=== PATIENT | male | born 1980 | race Caucasian/White ===

== ENCOUNTER → 2020-07-21 11:17 | Outpatient (BNVA) | payer OTHER, SELFPAY | PROVIDERS: Visit Provider Nurse Practitioner Family | DX: R53.83 Other fatigue (principal); E78.5 Hyperlipidemia, unspecified | CPT/HCPCS: 80053; 80061; 84443; 85007; 85027 ==

== ENCOUNTER 2020-08-17 12:00 | Outpatient (CLI) | payer OTHER, SELFPAY | END 2020-08-17 12:01 | disposition home or self-care (01) | LOC: SLEEP 08-19 08:56 | PROVIDERS: Visit Provider Nurse Practitioner Family | DX: G47.19 Other hypersomnia (principal) | CPT/HCPCS: G0399 ==

== ENCOUNTER 2021-03-09 08:54 | Emergency (ER) | payer OTHER, SELFPAY ==
[2021-03-09 09:13] VITALS: BP 135/94; PULSE 88; RESP 16; TEMP 36.7; O2SAT 96; BMI 36.4
[2021-03-09 09:28] VITALS: BP 142/97; PULSE 87; O2SAT 97
--- NOTE | 2021-03-09 09:28 | US_ITS ---
WS: [id number] SCROTAL ULTRASOUND EXAMINATION CLINICAL INFORMATION: abscess COMPARISON: None. FINDINGS: TESTES Hypoechoic lesion in the inferior scrotum with sinus tract extending to the skin. Findings suspicious for small abscess measuring 0.9 x 0.6 x 0.3 cm. Associated Scrotal thickening. Testicles are normal in size and echotexture with normal vascularity. Right testes size: 4.7 cm x 2.7 cm x 2.5 cm. Left testes size: 5.1 cm x 3.1 cm x 2.9 cm. EPIDIDYMIDES Normal in size and echotexture, without focal lesion. Color Doppler: Normal color Doppler flow pattern. Right epididymis size: 1.3 cm x cm x cm. Left epididymitis size: 0.8 cm x cm x cm. HYDROCELE None. VARICOCELE None. OTHER FINDINGS None. US/US scrotum [id number] IMPRESSION: 1. Suspected abscess in the inferior scrotum described above with associated s inus tract. Hypoechoic region measures 0.9 x 0.3 x 0.6 cm 2. Scrotal skin thickening. 3. Testicles are normal in appearance.
--- NOTE | 2021-03-09 09:29 | ED_ITS ---
HPI - Skin/Abscess/Foreign Bdy General: Chief complaint: Skin/Abscess/Foreign Body Stated complaint: possible abscess in groin Time Seen by Provider: 03/09/21 09:01 Source: patient Mode of arrival: ambulatory Limitations: no limitations History of Present Illness: HPI narrative: Patient is a nice 40-year-old male who presents to ED today along with his for a complaint of a knot underneath the scrotum. Patient states approximately 10 days ago he noted what he thought to be was most likely an ingrown hair to the area but states since that time pain has progressively worsened and he feels like area has enlarged. He has not noted any redness or heat to the area. He has not been running fevers. MD complaint: abscess/boil and lesion Onset (ago): day(s) Tetanus up to date: yes Location: genitals Severity: moderate Pain Consistency: constant Relieving factors: none Exacerbating factors: none Context: none Associated symptoms: Reports no associated symptoms; Deny chills, fever(s), nausea or vomiting Treatments prior to arrival: none Review of Systems Const: Denies: fever(s), chills, body aches, fatigue or malaise Card: Denies: chest pain Resp: Denies: dyspnea GI: Denies: abdominal pain, nausea, vomiting or diarrhea : Reports: genital lesions (reports possible abscess); Denies: flank pain, dysuria, hematuria, penile discharge, testicular pain or scrotal swelling Skin/Breast: Denies: rash PFS ED PFSH: Medical History Hx of renal calculi Social History Smoking and tobacco status: current every day smoker smokeless tobacco Physical Exam Const: COMMON NORMALS: no acute distress, patient oriented x3, no limitations, healthy appearing, alert and well nourished GENERAL APPEARANCE: cooperative NUTRITIONAL APPEARANCE: obese ORIENTATION/CONSCIOUSNESS: Yes awake, Yes oriented to person, Yes oriented to place and Yes oriented to time Resp: COMMON NORMALS: normal respiratory effort and clear to auscultation bilaterally AUSCULTATION: clear to auscultation bilaterally Cardio: COMMON NORMALS: regular rate and regular rhythm RATE: regular rate RHYTHM: regular rhythm : PENIS: normal penis SCROTUM: Yes testes descended bilaterally, No erythematous, No edematous and No scrotal swelling TESTES: Yes testicular lie normal, No testicular swelling and No testicular tenderness OTHER: patient has a 1.0cm abscess to posterior scrotal wall with two small (1-2mm) pustules with purulent material; no active drainage; there does not appear to be any surrounding cellulitis or edema; testicle palpation is normal; my suspicion is that this will be localized to superficial tissues but will obtain US evaluation to rule out any deeper fluid collection Neuro: COMMON NORMALS: patient oriented x3 SENSORIUM/ORIENTATION: Yes alert, Yes oriented to person, Yes oriented to place and Yes oriented to time Skin: NARRATIVE SKIN EXAM: see assessment for pertinent skin findings Course Vital Signs: Vital signs: Vital Signs Temperature 98.1 F 03/09/21 09:13 Pulse Rate 87 03/09/21 09:28 Respiratory Rate 16 03/09/21 09:13 Blood Pressure 142/97 03/09/21 09:28 Pulse Oximetry 97 03/09/21 09:28 MDM - Skin/Abscess/Foreign Bdy MDM Narrative: Medical decision making narrative: At this point abscess is superficial and less than 1 cm and does not appear easily drainable by US. Patient has no surrounding erythema/warmth or edema. No intrascrotal organ involvement. Patient will be instructed for sitz baths and will place on oral abx. Return to ED precautions for worsening symptoms-otherwise recommend PCP follow up early next week. No need for urology referral at this time. Imaging Data^: US testicular/scrotum: My impression: Per Nehemias Rossi, tech-small 0.9mm inferior scrotal wall abscess that did not appear drainable; otherwise normal Discharge Plan Discharge Patient Disposition: Home Clinical Impression: Scrotal wall abscess Condition: Stable Prescriptions: New Bactrim DS 800-160 mg tablet 1 tab PO BID 7 Days Qty: 14 RF: 0 No Action Tylenol Extra Strength 500 mg Tablet 1,000 mg PO Q4H PRN (Reason: Pain) RF: 0 Discharge Orders: Discharge ED (Routine); Ordered 03/09/21 Ordered By: Tete Colin Patient Instructions: Abscess (ED) Activity Restrictions/Additional Instructions: As we discussed begin taking antibiotics immediately. You may do sitz baths 2- 3x daily to area. Please monitor area closely for worsening swelling, redness/warmth, or increased pain. You need to return to the emergency department over the weekend if these occur. Otherwise please follow-up with primary care early next week for reevaluation. Stand Alone Forms: Work/School Release Coding Level of Care Code ED Template Reproduction Technician for Emma Ortega Exam Expanded Problem Focused
== END 2021-03-09 10:17 | disposition home or self-care (01) ==
PROVIDERS: Emergency Provider Physician Assistant
DX: N49.2 Inflammatory disorders of scrotum (principal); F17.210 Nicotine dependence, cigarettes, uncomplicated
CPT/HCPCS: 76870; 99281

== ENCOUNTER 2022-10-30 03:48 | Emergency (ER) | payer OTHER, SELFPAY ==
[2022-10-30 03:57] VITALS: BP 152/116; PULSE 78; RESP 18; RESP 22; TEMP 36; TEMP 36.6; O2SAT 98; BMI 38.2
--- NOTE | 2022-10-30 03:57 | CTR_ITS ---
PROCEDURE INFORMATION: Exam: CT Abdomen And Pelvis Without Contrast Exam date and time: 10/30/2022 4:25 AM Age: 42 years old Clinical indication: Abdominal pain; Flank; Right; Additional info: Right flank pain TECHNIQUE: Imaging protocol: Computed tomography of the abdomen and pelvis without contrast. Radiation optimization: All CT scans at this facility use at least one of these dose optimization techniques: automated exposure control; mA and/or kV adjustment per patient size (includes targeted exams where dose is matched to clinical indication); or iterative reconstruction. REPORTING DATA: Count of CT and Cardiac NM exams in prior 12 months: This patient has received 0 known CTs and 0 known cardiac nuclear medicine studies in the 12 months prior to the current study. COMPARISON: CT kidney stone [id number] 09/05/2018 5:45 PM RADIATION DOSE METRICS: Total DLP (mGy-cm): 930.23 FINDINGS: Liver: No acute abnormality on noncontrast imaging. Gallbladder and bile ducts: No acute abnormality. No calcified stones. No ductal dilation. Pancreas: No acute abnormality. No ductal dilation. Spleen: No acute abnormality. Adrenal glands: No significant or acute abnormality. Kidneys and ureters: Tiny punctate nonobstructing bilateral renal calculi. No hydronephrosis, hydroureter or definite distal urinary calculus. Stomach and bowel: Ingested contents within stomach. No significant large or small bowel distention. No evidence of diverticulitis. Appendix: Grossly normal nondilated visualized appendix. Intraperitoneal space: No significant fluid collection. No free air. Vasculature: No acute abnormality. No abdominal aortic aneurysm. Lymph nodes: No enlarged lymph nodes. Urinary bladder: Nondistended decompressed urinary bladder. No bladder calculi. Reproductive: Unremarkable as visualized. Bones/joints: No acute osseous abnormality. No dislocation. Soft tissues: Small fat containing umbilical hernia. CT/CT kidney stone [id number] IMPRESSION: 1. Tiny punctate nonobstructing bilateral renal calculi. 2. No evidence of distal urinary calculus or obstructive uropathy at this time.
--- NOTE | 2022-10-30 03:58 | W.ED.BACK ---
Documented by User: Ramila Simeon MD 10/30/22 04:01 HPI - Back Pain/Injury General: Chief Complaint: Back Pain/Injury Stated Complaint: Lower Back Pain Time Seen by Provider: 10/30/22 03:49 Source: patient Mode of arrival: ambulatory Limitations: no limitations History of Present Illness: 42-year-old male states that 9:00 he started having right flank pain and right lower back pain. He states that started suddenly is very sharp in nature. States it does seem to be worse with movement and he does have some tenderness to palpation but he also has a history of kidney stones and states this feels similar. He denies any vomiting or diarrhea denies any fevers. Associated symptoms: Reports abdominal pain and nausea; Deny chills, dysuria, fever(s) or vomiting Review of Systems Const: Denies: fever(s), chills or body aches Eyes: Denies: eye discomfort ENMT: Denies: throat pain or dental pain Card: Denies: chest pain Resp: Denies: dyspnea GI: Reports: abdominal pain and nausea; Denies: vomiting or diarrhea : Denies: dysuria Musc: Reports: back pain; Denies: neck pain Skin/Breast: Denies: rash PFSH ED PFSH: Medical History Hx of renal calculi Social History Smoking and tobacco status: current every day smoker smokeless tobacco Physical Exam Const: COMMON NORMALS: no acute distress, patient oriented x3 and healthy appearing HENMT: COMMON NORMALS: normocephalic and atraumatic HEAD & SCALP: normocephalic and atraumatic Eye: COMMON NORMALS: conjunctivae normal CONJUNCTIVA: Yes conjunctivae normal Neck/C-Spine: COMMON NORMALS: full ROM and supple Chest: COMMONS NORMALS: normal inspection of the chest and normal palpation of entire chest wall Resp: COMMON NORMALS: normal respiratory effort, No retractions, No use of accessory muscles and clear to auscultation bilaterally AUSCULTATION: clear to auscultation bilaterally Cardio: COMMON NORMALS: regular rate, regular rhythm and No murmurs present (Cardio) RATE: regular rate RHYTHM: regular rhythm GI: COMMON NORMALS: Normal to inspection, nondistended, normoactive bowel sounds present, Soft to palpation, non-tender and no masses PALPATION: Yes Soft to palpation : OTHER: right cva tenderness Back/Pelvis: OTHER: right lower lumbar tenderness Extremity: COMMON NORMALS: normal to inspection and full ROM Neuro: COMMON NORMALS: patient oriented x3, moves all extremities and no focal motor deficits Psych: COMMON NORMALS: mental status grossly normal, Normal thought process present and cooperative THOUGHT PROCESS: Normal thought process present Skin: COMMON NORMALS: no rashes or lesions noted and no wounds GENERAL SKIN EXAM: no rashes or lesions noted Course Vital Signs: Vital signs: Vital Signs Temperature 97.8 F 10/30/22 03:57 Pulse Rate 64 10/30/22 06:39 Respiratory Rate 18 10/30/22 05:52 Blood Pressure 129/82 10/30/22 06:39 Pulse Oximetry 94 10/30/22 06:39 Oxygen Delivery Me thod Room Air 10/30/22 06:39 MDM - Back Pain/Injury Labs 10/30/22 04:00 10/30/22 04:00 Radiology Impressions Abdomen/Pelvis CT 10/30/22 03:57 IMPRESSION: 1. Tiny punctate nonobstructing bilateral renal calculi. 2. No evidence of distal urinary calculus or obstructive uropathy at this time. Laboratory Results WBC 9.5 10^3/uL (4.0-10.0) 10/30/22 04:00 RBC 5.82 10^6/uL (4.1-5.3) H 10/30/22 04:00 Hgb 16.5 g/dL (11.7-16.6) 10/30/22 04:00 Hct 48.8 % (42.0-52.0) 10/30/22 04:00 MCV 83.8 fl (80-94) 10/30/22 04:00 MCH 28.4 pg (28.0-34.0) 10/30/22 04:00 MCHC 33.8 g/dL (30.0-36.0) 10/30/22 04:00 RDW 12.9 % (12.1-15.1) 10/30/22 04:00 Plt Count 334 10^3/cmm (130-400) 10/30/22 04:00 MPV 9.0 fL (7.4-10.4) 10/30/22 04:00 Neut % (Auto) 63.8 % 10/30/22 04:00 Lymph % (Auto) 24.0 % 10/30/22 04:00 [place] % (Auto) 7.5 % 10/30/22 04:00 Eos % (Auto) 3.4 % 10/30/22 04:00 Baso % (Auto) 0.8 % 10/30/22 04:00 Neut # (Auto) 6.06 10^3/uL (1.8-7.7) 10/30/22 04:00 Lymph # (Auto) 2.3 10^3/uL (0.8-4.8) 10/30/22 04:00 [place] # (Auto) 0.7 10^3/uL (0.2-0.9) 10/30/22 04:00 Eos # (Auto) 0.3 10^3/uL (0.0-0.8) 10/30/22 04:00 Baso # (Auto) 0.1 10^3/uL (0.0-0.1) 10/30/22 04:00 Nucleated RBC % (auto) 0 % 10/30/22 04:00 Nucleated RBCs # 0.0 /100WBC 10/30/22 04:00 Sodium 139 mmol/L (136-145) 10/30/22 04:00 Potassium 4.4 mmol/L (3.5-5.1) 10/30/22 04:00 Chloride 100 mmol/L (98-107) 10/30/22 04:00 Carbon Dioxide 27 mmol/L (22-29) 10/30/22 04:00 Anion Gap 16.4 (5-19) 10/30/22 04:00 BUN 18 mg/dL (6-20) 10/30/22 04:00 Creatinine 1.0 mg/dL (0.7-1.2) 10/30/22 04:00 GFR Calculation 81.2 mL/min (90-130) L 10/30/22 04:00 Glucose 93 mg/dL (65-115) 10/30/22 04:00 Calculated Osmolality 290 mOsm/kg (285-295) 10/30/22 04:00 Calcium 9.8 mg/dL (8.5-10.5) 10/30/22 04:00 Total Bilirubin 0.8 mg/dL (0.15-1.2) 10/30/22 04:00 AST 17 U/L (0-40) 10/30/22 04:00 ALT 31 U/L (0-41) 10/30/22 04:00 Alkaline Phosphatase 65 U/L (40-130) 10/30/22 04:00 Total Protein 7.4 g/dL (6.6-8.7) 10/30/22 04:00 Albumin 4.8 g/dL (3.5-5.2) 10/30/22 04:00 Globulin 2.6 g/dL (1.3-4.6) 10/30/22 04:00 Lipase 28 U/L (13-60) 10/30/22 04:00 Urine Color Yellow (Yellow) 10/30/22 04:39 Urine Appearance Clear (CLEAR) 10/30/22 04:39 Urine pH 6 (5-7) 10/30/22 04:39 Ur Specific Downing 1.025 (1.005-1.030) 10/30/22 04:39 Urine Protein Neg (Negative) 10/30/22 04:39 Urine Glucose (UA) Norm (Normal) 10/30/22 04:39 Urine Ketones Negative (Negative) 10/30/22 04:39 Urine Blood Neg (Negative) 10/30/22 04:39 Urine Nitrate Negative (Negative) 10/30/22 04:39 Urine Bilirubin Neg (Negative) 10/30/22 04:39 Urine Urobilinogen Neg mg/dL (Negative) 10/30/22 04:39 Ur Leukocyte Esterase Negative (Negative) 10/30/22 04:39 Discharge Plan Discharge Patient Disposition: Home Clinical Impression: Strain of lumbar region Condition: Stable Prescriptions: New tizanidine 4 mg tablet 4 mg PO Q6H PRN (Reason: muscle spasticity) Qty: 20 0RF Rx Instructions: do not exceed 3 doses per 24 hrs diclofenac sodium 75 mg tablet,delayed release (DR/EC) 75 mg PO Q12H PRN (Reason: pain) Qty: 20 0RF No Action Tylenol Extra Strength 500 mg Tablet 1,000 mg PO Q4H PRN (Reason: Pain) Discharge Orders: Discharge ED (Routine); Ordered 10/30/22 Ordered By: Kostas Best Discharge Diet: Usual diet Discharge Activity: Limit activity as instructed Patient Instructions: Opioid Safety, Pain Management Activity Restrictions/Additional Instructions: You are seen today for right flank pain. Urine did not show any blood in the CT of the renal system did not show any stones in the ureter. Will discharge home with muscle relaxer and anti-inflammatory if not improving follow-up with your primary care doctor. Sign Out Sign Out Data: Patient Sign Out occurred on 10/30/22 at 05:53. Patient's care was discussed, and care was transferred from to Kostas Best DO. Coding Level of Care Code ED Heating And Ventilation Engineer for Chg Fwd Documented by User: Kostas Best DO 10/30/22 11:23 HPI - Back Pain/Injury General: Chief Complaint: Back Pain/Injury Stated Complaint: Lower Back Pain Time Seen by Provider: 10/30/22 03:49 PFSH ED PFSH: Medical History Hx of renal calculi Social History Smoking and tobacco status: current every day smoker smokeless tobacco Course Vital Signs: Vital signs: Vital Signs Temperature 97.8 F 10/30/22 03:57 Pulse Rate 64 10/30/22 06:39 Respiratory Rate 18 10/30/22 05:52 Blood Pressure 129/82 10/30/22 06:39 Pulse Oximetry 94 10/30/22 06:39 Oxygen Delivery Me thod Room Air 10/30/22 06:39 MDM - Back Pain/Injury Medical Decision Making Care assumed at change of shift from Dr. Simeon. Chart reviewed. CT reviewed. No acute findings no evidence of appendicitis no evidence of bowel rupture there is no evidence of nephrolithiasis or structural renal abnormality. Patient refers mostly to left lateral lumbar pain. He has no radicular symptoms. We will discharge patient home with anti-inflammatory follow-up with primary care if not improving Medical Records I reviewed the patient's medical records. Labs I reviewed the patient's lab results. 10/30/22 04:00 10/30/22 04:00 Radiology Impressions Abdomen/Pelvis CT 10/30/22 03:57 IMPRESSION: 1. Tiny punctate nonobstructing bilateral renal calculi. 2. No evidence of distal urinary calculus or obstructive uropathy at this time. Laboratory Results WBC 9.5 10^3/uL (4.0-10.0) 10/30/22 04:00 RBC 5.82 10^6/uL (4.1-5.3) H 10/30/22 04:00 Hgb 16.5 g/dL (11.7-16.6) 10/30/22 04:00 Hct 48.8 % (42.0-52.0) 10/30/22 04:00 MCV 83.8 fl (80-94) 10/30/22 04:00 MCH 28.4 pg (28.0-34.0) 10/30/22 04:00 MCHC 33.8 g/dL (30.0-36.0) 10/30/22 04:00 RDW 12.9 % (12.1-15.1) 10/30/22 04:00 Plt Count 334 10^3/cmm (130-400) 10/30/22 04:00 MPV 9.0 fL (7.4-10.4) 10/30/22 04:00 Neut % (Auto) 63.8 % 10/30/22 04:00 Lymph % (Auto) 24.0 % 10/30/22 04:00 [place] % (Auto) 7.5 % 10/30/22 04:00 Eos % (Auto) 3.4 % 10/30/22 04:00 Baso % (Auto) 0.8 % 10/30/22 04:00 Neut # (Auto) 6.06 10^3/uL (1.8-7.7) 10/30/22 04:00 Lymph # (Auto) 2.3 10^3/uL (0.8-4.8) 10/30/22 04:00 [place] # (Auto) 0.7 10^3/uL (0.2-0.9) 10/30/22 04:00 Eos # (Auto) 0.3 10^3/uL (0.0-0.8) 10/30/22 04:00 Baso # (Auto) 0.1 10^3/uL (0.0-0.1) 10/30/22 04:00 Nucleated RBC % (auto) 0 % 10/30/22 04:00 Nucleated RBCs # 0.0 /100WBC 10/30/22 04:00 Sodium 139 mmol/L (136-145) 10/30/22 04:00 Potassium 4.4 mmol/L (3.5-5.1) 10/30/22 04:00 Chloride 100 mmol/L (98-107) 10/30/22 04:00 Carbon Dioxide 27 mmol/L (22-29) 10/30/22 04:00 Anion Gap 16.4 (5-19) 10/30/22 04:00 BUN 18 mg/dL (6-20) 10/30/22 04:00 Creatinine 1.0 mg/dL (0.7-1.2) 10/30/22 04:00 GFR Calculation 81.2 mL/min (90-130) L 10/30/22 04:00 Glucose 93 mg/dL (65-115) 10/30/22 04:00 Calculated Osmolality 290 mOsm/kg (285-295) 10/30/22 04:00 Calcium 9.8 mg/dL (8.5-10.5) 10/30/22 04:00 Total Bilirubin 0.8 mg/dL (0.15-1.2) 10/30/22 04:00 AST 17 U/L (0-40) 10/30/22 04:00 ALT 31 U/L (0-41) 10/30/22 04:00 Alkaline Phosphatase 65 U/L (40-130) 10/30/22 04:00 Total Protein 7.4 g/dL (6.6-8.7) 10/30/22 04:00 Albumin 4.8 g/dL (3.5-5.2) 10/30/22 04:00 Globulin 2.6 g/dL (1.3-4.6) 10/30/22 04:00 Lipase 28 U/L (13-60) 10/30/22 04:00 Urine Color Yellow (Yellow) 10/30/22 04:39 Urine Appearance Clear (CLEAR) 10/30/22 04:39 Urine pH 6 (5-7) 10/30/22 04:39 Ur Specific [place]ing 1.025 (1.005-1.030) 10/30/22 04:39 Urine Protein Neg (Negative) 10/30/22 04:39 Urine Glucose (UA) Norm (Normal) 10/30/22 04:39 Urine Ketones Negative (Negative) 10/30/22 04:39 Urine Blood Neg (Negative) 10/30/22 04:39 Urine Nitrate Negative (Negative) 10/30/22 04:39 Urine Bilirubin Neg (Negative) 10/30/22 04:39 Urine Urobilinogen Neg mg/dL (Negative) 10/30/22 04:39 Ur Leukocyte Esterase Negative (Negative) 10/30/22 04:39 Discharge Plan Discharge Patient Disposition: Home Clinical Impression: Strain of lumbar region Condition: Stable Prescriptions: New tizanidine 4 mg tablet 4 mg PO Q6H PRN (Reason: muscle spasticity) Qty: 20 0RF Rx Instructions: do not exceed 3 doses per 24 hrs diclofenac sodium 75 mg tablet,delayed release (DR/EC) 75 mg PO Q12H PRN (Reason: pain) Qty: 20 0RF No Action Tylenol Extra Strength 500 mg Tablet 1,000 mg PO Q4H PRN (Reason: Pain) Discharge Orders: Discharge ED (Routine); Ordered 10/30/22 Ordered By: Kostas Best Discharge Diet: Usual diet Discharge Activity: Limit activity as instructed Patient Instructions: Opioid Safety, Pain Management Activity Restrictions/Additional Instructions: You are seen today for right flank pain. Urine did not show any blood in the CT of the renal system did not show any stones in the ureter. Will discharge home with muscle relaxer and anti-inflammatory if not improving follow-up with your primary care doctor. Sign Out Sign Out Data: Patient Sign Out occurred on 10/30/22 at 05:53. Patient's care was discussed, and care was transferred from to Kostas Best DO. Coding Level of Care Code ED Heating And Ventilation Engineer for Emma Ortega
[2022-10-30 04:02] VITALS: RESP 18
[2022-10-30] MEDS: sodium chloride 0.9% 1,000 ML 999 ML IV (04:02)
[2022-10-30] MEDS: HYDROmorphone 1 mg/mL INJ 1 mL IVP (04:02)
[2022-10-30] MEDS: ondansetron 2 mg/ML SDV 2 mL 4 MG IVP (04:02)
[2022-10-30 04:03] VITALS: PULSE 76; RESP 20; O2SAT 96
[2022-10-30 04:14] LABS: Basophils # 0.1 10^3/uL (0.0-0.1); Basophils % 0.8 %; Eosinophils # 0.3 10^3/uL (0.0-0.8); Eosinophils % 3.4 %; Hematocrit 48.8 % (42.0-52.0); Hemoglobin 16.5 g/dL (11.7-16.6); Lymphocytes # 2.3 10^3/uL (0.8-4.8); Mean Corpuscular HGB Conc 33.8 g/dL (30.0-36.0); Mean Corpuscular Hemoglobin 28.4 pg (28.0-34.0); Mean Corpuscular Volume 83.8 fl (80-94); Monocytes # 0.7 10^3/uL (0.2-0.9); Monocytes % 7.5 %; Neutrophils # 6.06 10^3/uL (1.8-7.7); Neutrophils % 63.8 %; Nucleated Red Blood Cells % 0 %; Platelet Count 334 10^3/cmm (130-400); Red Blood Count 5.82 10^6/uL (4.1-5.3); Red Cell Distribution Width 12.9 % (12.1-15.1); White Blood Count 9.5 10^3/uL (4.0-10.0)
[2022-10-30 04:32] LABS: Alanine Aminotransferase 31 U/L (0-41); Albumin Level 4.8 g/dL (3.5-5.2); Alkaline Phosphatase 65 U/L (40-130); Anion Gap 16.4 (5-19); Aspartate Amino Transferase 17 U/L (0-40); Blood Urea Nitrogen 18 mg/dL (6-20); Calcium 9.8 mg/dL (8.5-10.5); Carbon Dioxide 27 mmol/L (22-29); Chloride 100 mmol/L (98-107); Globulin 2.6 g/dL (1.3-4.6); Glomerular Filtration Rate 81.2 mL/min (90-130); Glucose 93 mg/dL (65-115); Lipase 28 U/L (13-60); Osmolality Calculated 290 mOsm/kg (285-295); Potassium 4.4 mmol/L (3.5-5.1); Sodium 139 mmol/L (136-145); Total Bilirubin 0.8 mg/dL (0.15-1.2); Total Protein 7.4 g/dL (6.6-8.7)
[2022-10-30 04:45] LABS: Add Urine Microscopic? NO; Charge for UA Resulting for Rev
[2022-10-30 05:24] LABS: Bilirubin Urine Neg (Negative); Blood Urine Neg (Negative); Glucose Urine UA Norm (Normal); Ketones Urine Negative (Negative); Leukocyte Esterase Urine Negative (Negative); Nitrate Urine Negative (Negative); Protein Urine Neg (Negative); Specific Gravity, Urine 1.025 (1.005-1.030); Urine Appearance Clear (CLEAR); Urine Color Yellow (Yellow); Urobilinogen Urine Neg (Negative); pH Urine 6 (5-7)
[2022-10-30 05:52] VITALS: BP 116/79; PULSE 69; RESP 18; O2SAT 94
[2022-10-30 06:39] VITALS: BP 129/82; PULSE 64; O2SAT 94
--- NOTE | 2022-11-01 12:17 | DCPLANNER ---
application manager called patient due to no primary care physician - no answer at this time.
== END 2022-10-30 07:45 | disposition home or self-care (01) ==
PROVIDERS: Emergency Medicine; Emergency Provider Family Medicine
DX: S39.012A Strain of muscle, fascia and tendon of lower back, initial encounter (principal); F17.220 Nicotine dependence, chewing tobacco, uncomplicated; X58.XXXA Exposure to other specified factors, initial encounter
CPT/HCPCS: 74176; 80053; 81003; 83690; 85025; 96361; 96374; 96375; 99285; J1170; J2405; J7030

== ENCOUNTER 2025-04-16 05:59 | Emergency (ER) | payer OTHER, SELFPAY ==
--- NOTE | 2025-04-16 06:02 | ECG_ITS ---
[employer] Test Date: 2025-04-16 Pat Name: Nate Hobson Department: Room: Gender: Male Paper Sorter: : 1980 Requested By: Mary Ann Fletcher Order Number: [id number] Izaguirre MD: Jeremias Issa M.D. Measurements Intervals Fisher Rate: 114 P: 41 WI: 160 QRS: -22 QRSD: 87 T: 52 QT: 301 QTc: 415 Interpretive Statements SINUS TACHYCARDIA BORDERLINE LEFT AXIS DEVIATION [QRS AXIS < -20] POSSIBLE RIGHT VENTRICULAR CONDUCTION DELAY [RSR (QR) IN V1/V2] No previous ECG available for comparison Electronically Signed On 04-17-2025 12:00:31 CDT by Jeremias Issa M.D. [email or web address]
--- NOTE | 2025-04-16 06:03 | XRR_ITS ---
PROCEDURE INFORMATION: Exam: XR Chest Exam date and time: 04/16/2025 6:04 AM Age: 44 years old Clinical indication: Shortness of breath TECHNIQUE: Imaging protocol: Radiologic exam of the chest. Views: 1 view. COMPARISON: CT kidney stone [id number] 10/30/2022 4:25 AM FINDINGS: Lungs: Unremarkable. No consolidation. Pleural spaces: Unremarkable. No pleural effusion. No pneumothorax. Heart/Mediastinum: Unremarkable. No cardiomegaly. Bones/joints: Unremarkable. XR/XR chest 1V portable [id number] IMPRESSION: No acute findings.
--- OUTSIDE RECORDS SUMMARY | 2025-04-16 06:05 | XMS_ITS | Data Portability ---
Author Organization [facility] Address [address] [address] Care Team Providers Care Coil Taper Name Role Phone OCTAVIO LAKHANI Primary Care Provider Assessment Encounter Date Assessment Date Assessment LastModified by Organization Details LastModified Time 09/04/2023 09/04/2023 surgical site is well healed healing bruising abdomen is soft and not tender Not available 09/04/2023 12:37:10 03/09/2024 03/09/2024 generalized skin rash. will bx if not resolving with fungal tx. he insists he was tx for fungus before for this. his skin is dry and not specific. his nails are not pitted but thickened and yellow on all extremities. Not available 03/09/2024 10:00:32 06/11/2024 06/11/2024 we really talked about the elevated triglycerides what it means and how to lower them and why. we discussed dietary changes at long length. we discussed risk of fatty liver disease dm and heart disease associated with elevated triglycerides and the only mode of reducing trigs that lowers these risks is weight loss. [email or web address] Not available 06/11/2024 08:58:44 Plan of Treatment Reminders Order Date Submit Date Provider Last Modified By Organization Details Last Modified Time Details Appointments None recorded. Lab TSH, serum or plasma 2023 024 [facility] ([facility]), [address] [place] [address], [phone], 12:08:40 T4, free, serum 2023 024 [facility], [address], [place], [address], 4 05:28:07 CMP, serum or plasma 2023 024 [employer], [address], [address], [place], [address], 4 11:19:25 lipid panel, blood 2023 024 [facility], [address] [facility], [place], [address], 4 12:00:49 Referral general surgeon referral 2022 023 [email or web address] 2 Mello Morales MD, [address] [facility], [facility] [address], [place], [address], 4 14:13:56 Procedures colonoscopy procedure (PROC) 2022 023 [email or web address] 2 Mello Morales MD, [address] [facility], [facility] [address], [place], [address], 4 14:14:25 Surgeries None recorded. Imaging None recorded. Medication Orders sildenafil 100 mg tablet 2023 024 [place] [employer] [facility], [address] [place], [address], 4 09:09:10 terbinafine HCl 250 mg tablet 2023 024 [facility] [address], [place], [address], 4 10:14:17 Patient TargetsNo targets recorded. Patient InstructionsNo instructions recorded. Reason for Referral General Surgeon Referral for Umbilical hernia Referring Physician: Octavio Lakhani, Family Medicine, Encounter Date: 06/19/2023 Results Created Date Observation Date Name Description Value Unit Range Abnormal Flag Note LastModifiedBy Organization Detail LastModifiedTime 08/05/19 24 08/06/2023 T4, FREE T4, free 0.9 NG/dL 0.8-1. 8 normal Not Available [employer] [facility] [address] [place], [address], 08/06/2023 10:13:52 08/05/19 24 08/05/2023 TSH, serum or plasm a TSH 1.87 normal Not Available [facility] ([facility]) [address] [place], [address], 08/05/2023 09:38:56 03/03/20 24 03/03/2024 LIPID PROFI LE (MALE ) cholesterol 221.0 mg/dL 0.0-20 0.0 high Not Available [facility] [address] [place] [address], [address], 03/03/2024 12:00:49 03/03/20 24 03/03/2024 LIPID PROFI LE (MALE ) trig 254.0 mg/dL 0.0-15 0.0 high Not Available [facility] [address], [address], 03/03/2024 12:00:49 03/03/20 24 03/03/2024 LIPID PROFI LE (MALE ) HDL - direct 37.0 mg/dL >40.[address] [facility] [address], [address], 03/03/2024 12:00:49 03/03/20 24 03/03/2024 LIPID PROFI LE (MALE ) VLDL - direct 50.8 mg/dL Not Available [facility] [address], [address], 03/03/2024 12:00:49 03/03/20 24 03/03/2024 LIPID PROFI ANGIE (MALE ) LDL - direct 133.2 mg/dL 0.0-13 0.0 high Not Available [facility] [address] [facility] [address], [place], [address], 03/03/2024 12:00:49 03/03/20 24 03/04/2024 T4, FREE T4, free 1.0 NG/dL 0.8-1. 8 normal Not Available [address] [address] [place], [address], 03/04/2024 05:28:07 03/03/2003/04/2024 COMPR EHENS MILO METAB OLIC PANEL glucose 91 mg/dL 65-99 normal Fasti ng refer ence inter jl Not Available [address], [address], 03/04/2024 11:19:25 03/03/20 24 03/04/2024 COMPR EHENS MILO METAB OLIC PANEL urea nitrogen (BUN) 11 mg/dL 7-25 normal Not Available [address], [address], 03/04/2024 11:19:25 03/03/20 24 03/04/2024 COMPR EHENS MILO METAB OLIC PANEL creatinine 1.03 mg/dL 0.60-1 .29 normal Not Available [address], [address], 03/04/2024 11:19:25 03/03/20 24 03/04/2024 COMPR EHENS MILO METAB OLIC PANEL eGFR 91 mL/mi n/1.7 3m2 > or = 60 normal Not Available [address], [address], 03/04/2024 11:19:25 03/03/20 24 03/04/2024 COMPR EHENS MILO METAB OLIC PANEL BUN/creatini ne ratio SEE NOTE: (calc ) 6-22 Not Repor angelia: BUN and Creat inine are withi n refer ence range . Not Available [address], [address], 03/04/2024 11:19:25 03/03/20 24 03/04/2024 COMPR EHENS MILO METAB OLIC PANEL sodium 138 mmol/ L 135-14 6 normal Not Available [address], [address], 03/04/2024 11:19:25 03/03/20 24 03/04/2024 COMPR EHENS MILO METAB OLIC PANEL potassium 4.2 mmol/ L 3.5-5. 3 normal Not Available [address], [address], 03/04/2024 11:19:25 03/03/20 24 03/04/2024 COMPR EHENS MILO METAB OLIC PANEL chloride 101 mmol/ L 98-110 normal Not Available [address], [address], 03/04/2024 11:19:25 03/03/20 24 03/04/2024 COMPR EHENS MILO METAB OLIC PANEL carbon dioxide 26 mmol/ L 20-32 normal Not Available [address], [address], 03/04/2024 11:19:25 03/03/20 24 03/04/2024 COMPR EHENS MILO METAB OLIC PANEL calcium 9.2 mg/dL 8.6-10 .3 normal Not Available [address], [address], 03/04/2024 11:19:25 03/03/20 24 03/04/2024 COMPR EHENS MILO METAB OLIC PANEL protein, total 7.0 g/dL 6.1-8. 1 normal Not Available [address], [address], 03/04/2024 11:19:25 03/03/20 24 03/04/2024 COMPR EHENS MILO METAB OLIC PANEL albumin 4.7 g/dL 3.6-5. 1 normal Not Available [address], [address], 03/04/2024 11:19:25 03/03/20 24 03/04/2024 COMPR EHENS MILO METAB OLIC PANEL globulin 2.3 g/dL_ (calc ) 1.9-3. 7 normal Not Available [address], [address], 03/04/2024 11:19:25 03/03/20 24 03/04/2024 COMPR EHENS MILO METAB OLIC PANEL albumin/glob ulin ratio 2.0 (calc ) 1.0-2. 5 normal Not Available [address], [address], 03/04/2024 11:19:25 03/03/20 24 03/04/2024 COMPR EHENS MILO METAB OLIC PANEL bilirubin, total 0.8 mg/dL 0.2-1. 2 normal Not Available [address], [address], 03/04/2024 11:19:25 03/03/2003/04/2024 COMPR EHENS MILO METAB OLIC PANEL alkaline phosphatase 47 U/L 36-130 normal Not Available [address] [address] [place], [address], 03/04/2024 11:19:25 03/03/20 24 03/04/2024 COMPR EHENS MILO METAB OLIC PANEL AST 18 U/L 10-40 normal Not Available [address], [address], 03/04/2024 11:19:25 03/03/20 03/04/2024 COMPR EHENS MILO METAB OLIC PANEL ALT 25 U/L 9-46 normal Not Available [employer] [address] [place], [address], 03/04/2024 11:19:25 03/03/20 24 03/03/2024 TSH, serum or plasm a TSH 1.21 uIU/m L 0.49-3 .82 Not Available [facility] ([facility]) [address] [place], [address], 03/03/2024 09:09:05 Result Notes None recorded. Problems Name Problem SNOMED Code Status Onset Date Resolution Date Notes Provider Name and Address Organization Details Recorded Time Ex-smoker 9497530 Active 2022 Octavio Lakhani MD [address] [place] [address], [address], [facility] 3 09:48:55 Tobacco dependence caused by chewing tobacco 5941183840244 9107 Active 2022 Octavio Lakhani MD [address] [place] [address], [address], [facility] 3 09:48:56 Eczema 12564602 Active 2023 Octavio Lakhani MD [address] [place] [address], [address], [facility] 4 09:45:12 Problem Notes None recorded. Procedures Surgical History Date Name Laterality Status Provider Name and Address Organization Details Recorded Time repair of umbilical hernia completed MARIBELL WALKER [facility] 09/04/2023 12:12:04 Imaging Results None recorded. Procedure Notes None recorded. Medical Equipment None Reported. Allergies Allergen ID Allergen Name Allergen Category Reaction Reaction Severity Criticality Documentation Date Start Date Code Code System Note Provider Name and Address Organization Details Recorded Time 332[address] clindamyc in Not available rash Not available Not available 06/19/2023 2582 RxNoaram viera [facility] 3 08:52:31 Medications Name Sig Start Date Stop Date Status Note LastModified by Organization Details LastModified Time tizanidine 4 mg tablet TAKE 1 TABLET BY MOUTH EVERY 6 HOURS NEEDED FOR MUSCLE SPASMS MAX OF THREE PER 24 HOURS 06/19 completed Not Available Not Available Not Available sildenafil 100 mg tablet 1 prior to sexual activity as needed 2023 active Not Available Not Available Not Avai lable terbinafine HCl 250 mg tablet TAKE 1 TABLET BY MOUTH ONCE DAILY FOR 90 DAYS 06/11 completed Not Available Not Available Not Available diclofenac sodium 75 mg tablet,kenia yed release TAKE 1 TABLET BY MOUTH EVERY TWELVE HOURS NEEDED FOR PAIN 06/19 completed Not Available Not Available Not Available One A Day Men Complete active Not Available Not Available Not Available Vitals Date Recorded Body height Body mass index (BMI) Body weight Body temperature Heart rate Oxygen saturation Oxygen saturation in Arterial blood by Pulse oximetry Systolic And Diastolic Provider Name and Address Organization Details Last Updated DateTime 4 165.1 cm 36.4 kg/m2 91191.7 3 g 98 [degF] 83 /min 99 % 99 % 118/80 mm[Hg] MARIBELL WALKER [facility] 4 12:09:22 Date Recorded Body height Body mass index (BMI) Body weight Body temperature Heart rate Oxygen saturation Oxygen saturation in Arterial blood by Pulse oximetry Systolic And Diastolic Provider Name and Address Organization Details Last Updated DateTime 4 165.1 cm 36.8 kg/m2 783214. 91 g 97.4 [degF] 72 /min 95 % 95 % 130/80 mm[Hg] Winsome Putnam [facility] 4 09:02:12 Date Recorded Body height Body mass index (BMI) Body weight Body temperature Oxygen saturation Oxygen saturation in Arterial blood by Pulse oximetry Heart rate Systolic And Diastolic Provider Name and Address Organization Details Last Updated DateTime 4 165.1 cm 37.6 kg/m2 834961. 88 g 97.7 [degF] 96 % 96 % 92 /min 128/80 mm[Hg] JOSEPH HERRERA [facility] 4 08:34:35 Date Recorded Body weight Body mass index (BMI) Body height Body temperature Heart rate Oxygen saturation Oxygen saturation in Arterial blood by Pulse oximetry Systolic And Diastolic Provider Name and Address Organization Details Last Updated DateTime 3 357975. 28 g 37.4 kg/m2 165.1 cm 97.4 [degF] 70 /min 97 % 97 % 130/78 mm[Hg] Winsome Putnam [facility] 3 08:54:26 Social History Question Answer Notes LastModified by [email or web address] Details LastModified Time Tobacco Smoking Status Former Smoker MARIBELLJuventino viera [facility] 09/04/2023 12:11:30 When Did You Quit Smoking? 16+yearssinc elastcigaret te Information not available 09/04/2023 Sex: Unknown Functional Status Question Answer Note LastModified by [email or web address] Details LastModified Time Do you use any illicit or recreational drugs? No [email or web address] Information not available 09/04/2023 Do you or have you ever used any other forms of tobacco or nicotine? Yes [email or web address] Information not available 09/04/2023 What is your level of alcohol consumption? Occasional [email or web address] Information not available 09/04/2023 Do you or have you ever used smokeless tobacco? Currently chews tobacco [email or web address] Information not available 09/04/2023 Mental Status None recorded. Family History Relationship Description Onset Age of this Age Resolved Age Notes LastModified by Organization Details LastModified Time Mother Diabetes mellitus [email or web address] Not available 09/03 12:10:17 Mother Myocardial infarction [email or web address] Not available 11/2023 12:10:24 Medical History No medical history recorded. Immunizations Vaccine Type Date Status Note Provider Nam e and Address Organization Details Recorded Time COVID-19, mRNA, LNP-S, PF, 100 mcg/0.5mL dose or 50 mcg/0.25mL dose 01/28/2021 completed Winsome viera [facility] 06/19/2023 08:52:42 COVID-19, mRNA, LNP-S, PF, 100 mcg/0.5mL dose or 50 mcg/0.25mL dose 02/25/2021 completed Winsome viera [facility] 06/19/2023 08:52:42 Past Encounters Encounter ID Performer Location Encounter Start Date Encounter Closed Date Diagnosis/Indication Diagnosis SNOMED-CT Code Diagnosis ICD10 Code Diagnosis IMO Codes Diagnosis Note [id number] Octavio Lakhani MD [facility] ([facility]) [address] [place] [phone] 06/19/2023 08:34:50 06/19/2023 10:07:00 Adult health examination 257044799 Z00.00 Screening for malignant neoplasm of colon 883737765 Z12.11 Serum thyr oid stimulating hormone level outside reference range 917543167 R89.1 Hypertriglyceridemia 302 181178 E78.1 discussed how and why to change the diet to lose weigh and lower dm and ascvd risk Tobacco de pendence caused by chewing tobacco 5832433901 6564428 F17.220 we discussed risk of chewing tobacco focusing on head/neck cancer. on exam no sign of this today but it is eroding the gums. he understand s the risks of chewing nad benefits of quitting. he is pre contemplat milo. Ex-smoker 9318160 Z87.89 1 Umbilical hernia 1467132 07 K42.9 [id number] Octavio Lakhani MD [facility] ([facility]) [address] [place] [phone] 09/04/2023 11:28:14 09/04/2023 13:01:40 Serum thyroid stimulating hormone level outside reference range 776256054 R89.1 Hypertriglyceridemia 302 432129 E78.1 discussed how and why to change the diet to lose weigh and lower dm and ascvd risk [id number] Octavio Lakhani MD [facility] ([facility]) [address] [place] [phone] 03/03/2024 09:05:47 03/04/2024 11:54:07 Serum thyroid stimulating hormone level outside reference range 254415970 R89.1 [id number] Octavio Lakhani MD [facility] ([facility]) [address] [place] [phone] 03/09/2024 08:51:31 03/09/2024 12:17:12 Onychomycosis of toenails 573461884 B35.1 Mixed hyperlipidemia 267 881806 E78.2 discussed risks of high trigs and saturated fats. we discussed how to lower fats in the diet and substituti ons to make. he has been changing his diet. he has maintained weigh loss this year. we discussed risks of nicotine/t obacco. he has dropped trigs 100 pts through diet change. ldl was not accurate on first reading due to high trigs thyroid labs are normal. [id number] Octavio Lakhani MD [facility] ([facility]) [address] [place] [phone] 06/11/2024 08:28:01 06/11/2024 14:14:46 Adult health examination 128730920 Z00.00 Tobacco de pendence caused by chewing tobacco 1937458116 8914922 F17.220 we discussed risk of chewing tobacco focusing on head/neck cancer. on exam no sign of this today but it is eroding the gums. he understand s the risks of chewing nad benefits of quitting. he is pre contemplat milo. fungal rash resolved nails shows clear healthy nail growing Erectile dysfunction 860 827128 F52.21 able to get an erection but not maintain Health Concerns Section Related Observation LastModified by Organization Detai ls LastModified Time None Recorded Concern Status LastModified by Organization Details LastModified Time None Recorded Advance Directives Directive None Recorded Payers Insurance Date Sequence Insurance Name Policy Number Policy Hidalgo Covered Member ID Hidalgo Member ID Guarantor Name 06/19/2023 MARNI Herrera [id number] Nate Herrera 06/10/2024 1 [facility] ([facility] [id number] Nate Herrera [id number] Nate Herrera Notes Date Note Type Note Provider Name and Address Organization Details Recorded Time 3 text/html Annual WellnessReported by Patient Generic HPI TemplateReported by PatientHPIFor context, (pt presents today for a cat wellness physical. waist: 44.5, fasting glucose: 88. a1c: 5.7. total cholesterol: 216. tri. hdl: 33. ldl: 123.). Octavio Lakhani MD [address] [place], [address], [facility] 06/19/2023 09:57:48 4 text/html HyperlipidemiaReported by PatientHPIFor duration, patient reportsnew onset. For complications, patient reportsno coronary artery diseaseandno cardiovascular disease.not currently on medications. He is working on low cholesterol diet.ROS as noted in the HPI f/u lab results: Pt was here in May for his wellness physical through [facility]. At the time, his TSH and lipid panel was elevated, and was to return for f/u labs in 6 weeks. Octavio Lakhani MD [address] [place], [address], [facility] 09/04/2023 12:37:25 4 text/html Rash/Skin LesionReported by PatientHPIFor quality, patient reportsitchy,red, andmultiplebut reportsnot painful. For location, patient reportshand,abdomen,back,bu ttock, andleg. For duration, (5 years). HyperlipidemiaReported by PatientHPIFor duration, patient reportsnew onset. For complications, patient reportsno coronary artery diseaseandno cardiovascular disease.not currently on medications. He is working on low cholesterol diet.ROS as noted in the HPI f/u lab results: Pt had labs completed recently and is here today to discuss them with Dr. Zoran Lakhani MD [address] [place], [address], [facility] 03/09/2024 10:01:30 4 text/html Annual WellnessReported by PatientSocial/Behavioral HistoryFor additional lifestyle factors, patient reportsno tobacco use.Mental Status:For depression risk, patient reportsnever feels sad, empty, or tearful,no sleep disturbances or insomnia, andno loss of energy.ROS as noted in the HPI Octavio Lakhani MD [address] [place], [address], [facility] 06/11/2024 09:13:36
--- NOTE | 2025-04-16 06:10 | ED_ITS ---
HPI - Chest Pain 2 General: Chief Complaint: Chest Pain Stated Complaint: pressure on chest, SOB, weakness Time Seen by Provider: 04/16/25 06:03 History of Present Illness: 44-year-old man with no known past medic al history who presents emergency room with chest pain, shortness of breath and generalized weakness. He says whenever he woke up before work last night he felt a bit congested and by this morning he feels very short of breath. He is having some pressure in his chest. He says his legs feel weak. No lower extremity swelling. No nausea or vomiting. No abdominal pain. No cough. Related Data Home Medications ?Medication ?Instructions ?Recorded ?Confirmed acetaminophen 500 mg tablet 1,000 mg PO Q4H PRN Pain 0 03/09/21 10/22/24 (Tylenol Extra Strength) Previous Rx's ?Medication ?Instructions ?Recorded diclofenac sodium 75 mg 75 mg PO Q12H PRN pain #20 t abs 10/30/22 tablet,delayed release tizanidine 4 mg tablet 4 mg PO Q6H PRN muscle spast icity 10/30/22 #20 tabs cephalexin 500 mg capsule 500 mg PO BID #14 caps 10/22 silver sulfadiazine 1 % topical 1 applic topical BID # 50 grams 10/22/24 cream (Silvadene) Allergies Allergy/AdvReac Type Severity Reaction Status Date / Time clindamycin Allergy rash Verified 04/16/25 06:15 Review of Systems 2 Narrative: Constitutional symptoms: Negative except as documented in HPI. Skin symptoms: Negative except as documented in HPI. Eye symptoms: Negative except as documented in HPI. ENMT symptoms: Negative except as documented in HPI. Respiratory symptoms: Negative except as documented in HPI. Cardiovascular symptoms: Negative except as documented in HPI. Gastrointestinal symptoms: Negative except as documented in HPI. Genitourinary symptoms: Negative except as documented in HPI. Musculoskeletal symptoms: Negative except as documented in HPI. Neurologic symptoms: Negative except as documented in HPI. Psychiatric symptoms: Negative except as documented in HPI. Endocrine symptoms: Negative except as documented in HPI. PFSH ED 2 PFSH: Medical History (Updated 04/16/25 @ 07:35 by Mary Ann Madsen MD) Hx of renal calculi Social History Smoking and tobacco/nicotine status: current every day tobacco/nicotine user smokeless tobacco Physical Exam 2 Narrative: EXAM NARRATIVE: General: Alert, no acute distress. Skin: Warm, dry. Head: Normocephalic, atraumatic. Neck: Supple, trachea midline. Eye: Extraocular movements are intact. Ears, nose, mouth and throat: mucosa moist. Cardiovascular: Regular, Normal peripheral perfusion. Respiratory: Lungs are clear to auscultation, respirations are non-labored, breath sounds are equal, Symmetrical chest wall expansion. Gastrointestinal: Soft, Nontender, Non distended Musculoskeletal: Normal ROM, no deformity. Neurological: Alert and oriented, No focal neurological deficit observed. Psychiatric: Cooperative, appropriate mood & affect. Course 2 Vital Signs: Vital signs: Vital Signs Temperature 98.9 F 04/16/25 06:22 Pulse Rate 87 04/16/25 07:36 Respiratory Rate 16 04/16/25 07:36 Blood Pressure 98/74 04/16/25 07:36 Pulse Oximetry 95 04/16/25 07:36 Oxygen Delivery Me thod Room Air 04/16/25 06:12 MDM - Chest Pain Medical Decision Making Differential diagnosis for patient with shortness of breath includes but is not limited to and based on the above HPI, review of systems and physical exam: Pneumonia. Bronchitis. Asthma or COPD with acute exacerbation. Acute coronary syndrome / OK. Pulmonary embolism. Anxiety. Congestive heart failure. Viral infections including influenza and Covid-19. Atrial fibrillation. Anxiety. Pleural effusion. Pneumothorax. Orders placed to evaluate differential diagnosis based on the above differential, HPI and physical exam EKG: Time 6:06 AM. Rate 114. Sinus tachycardia, No ST-T changes, no ectopy, normal VA & QRS intervals, This was reviewed and interpreted by myself the ER physician at 6:12 AM Chest x-ray: No acute process. No infiltrate. No pneumothorax. This was reviewed and interpreted by myself the emergency room physician. I also reviewed the radiology report. Lab Review: Laboratory results were reviewed and interpreted by myself the emergency room physician. No leukocytosis. No anemia. No renal failure. Sodium normal. Urinalysis negative for infection. Patient is positive for COVID I reviewed the patient's medical record. Reexamination: Patient remained stable. No increased work of breathing. No altered mental status. No focal motor deficits. No oxygen requirements Assessment and plan: COVID-19 - Discharged home - Discussed plan with patient. Answered any questions. - Evaluation and treatment of this problem were appropriate in the emergency setting. Lab Data 04/16/25 06:18 04/16/25 06:18 Radiology Impressions Chest X-Ray 04/16/25 06:03 IMPRESSION: No acute findings. Laboratory Results WBC 8.99 10^3/uL (3.29-11.43) 04/16/25 06:18 RBC 5.55 10^6/uL (3.85-5.65) 04/16/25 06:18 Hgb 15.80 g/dL (11.27-16.99) 04/16/25 06:18 Hct 43.8 % (37-53) 04/16/25 06:18 MCV 78.9 fl (82-101) L 04/16/25 06:18 MCH 28.5 pg (27-33) 04/16/25 06:18 MCHC 36.1 g/dL (30-55) 04/16/25 06:18 RDW 13.0 % (12.1-15.1) 04/16/25 06:18 Plt Count 270 10^3/cmm (157-399) 04/16/25 06:18 MPV 9.4 fL (7.4-10.4) 04/16/25 06:18 Neut % (Auto) 82.1 % 04/16/25 06:18 Lymph % (Auto) 6.5 % 04/16/25 06:18 Mcminn % (Auto) 8.6 % 04/16/25 06:18 Eos % (Auto) 1.8 % 04/16/25 06:18 Baso % (Auto) 0.8 % 04/16/25 06:18 Neut # (Auto) 7.39 10^3/uL (1.8-7.7) 04/16/25 06:18 Lymph # (Auto) 0.6 10^3/uL (0.8-4.8) L 04/16/25 06:18 Mcminn # (Auto) 0.8 10^3/uL (0.2-0.9) 04/16/25 06:18 Eos # (Auto) 0.2 10^3/uL (0.0-0.8) 04/16/25 06:18 Baso # (Auto) 0.1 10^3/uL (0.0-0.1) 04/16/25 06:18 Nucleated RBC % (auto) 0 % 04/16/25 06:18 Nucleated RBCs # 0.0 /100WBC 04/16/25 06:18 D-Dimer <= 0.27 ug/mLFEU (0-0.59) 04/16/25 06:18 Sodium 135 mmol/L (136-145) L 04/16/25 06:18 Potassium 3.9 mmol/L (3.5-5.1) 04/16/25 06:18 Chloride 98 mmol/L (98-107) 04/16/25 06:18 Carbon Dioxide 19 mmol/L (22-29) L 04/16/25 06:18 Anion Gap 21.9 (5-19) H 04/16/25 06:18 BUN 10 mg/dL (6-20) 04/16/25 06:18 Creatinine 0.9 mg/dL (0.7-1.2) 04/16/25 06:18 GFR Calculation 90.8 mL/min (90-130) 04/16/25 06:18 Glucose 133 mg/dL (65-115) H 04/16/25 06:18 Calculated Osmolality 281 mOsm/kg (285-295) L 04/16/25 06:18 Lactic Acid 2.7 mmol/L (0.5-2.2) H 04/16/25 06:18 Calcium 9.3 mg/dL (8.5-10.5) 04/16/25 06:18 Total Bilirubin 1.3 mg/dL (0.15-1.2) H 04/16/25 06:18 AST 19 U/L (0-40) 04/16/25 06:18 ALT 30 U/L (0-41) 04/16/25 06:18 Alkaline Phosphatase 65 U/L (40-130) 04/16/25 06:18 Troponin T Baseline 7 ng/L (0-15) 04/16/25 06:18 NT-Pro-B Natriuret Pep < 36 pg/mL (0-125) 04/16/25 06:18 Total Protein 6.8 g/dL (6.6-8.7) 04/16/25 06:18 Albumin 4.8 g/dL (3.5-5.2) 04/16/25 06:18 Globulin 2.0 g/dL (1.3-4.6) 04/16/25 06:18 Urine Color Yellow (Yellow) 04/16/25 06:10 Urine Appearance Clear (CLEAR) 04/16/25 06:10 Urine pH 5.5 (5-7) 04/16/25 06:10 Ur Specific [place] 1.023 (1.005-1.030) 04/16/25 06:10 Urine Protein Negative (Negative) 04/16/25 06:10 Urine Glucose (UA) Negative (Normal) 04/16/25 06:10 Urine Ketones Negative (Negative) 04/16/25 06:10 Urine Blood Negative (Negative) 04/16/25 06:10 Urine Nitrate Negative (Negative) 04/16/25 06:10 Urine Bilirubin Negative (Negative) 04/16/25 06:10 Urine Urobilinogen 0.2 mg/dL (Negative) 04/16/25 06:10 Ur Leukocyte Esterase Negative (Negative) 04/16/25 06:10 Urine RBC 0-2 /hpf (0-2) 04/16/25 06:10 Urine WBC 0-5 /hpf (0-5) 04/16/25 06:10 Ur Squamous Epith Cells 0-5 /hpf (0-5) 04/16/25 06:10 Amorphous Sediment Not Reportable 04/16/25 06:10 Urine Bacteria None seen /hpf (NONE) 04/16/25 06:10 Hyaline Casts 0-4 /lpf H 04/16/25 06:10 Influenza A (PCR) Negative (Negative) 04/16/25 06:20 Influenza Type B (PCR) Negative (Negative) 04/16/25 06:20 RSV (PCR) Negative (Negative) 04/16/25 06:20 SARS-CoV-2 (PCR) Positive (Negative) A 04/16/25 06:20 XR interpretation done by ED provider, pending radiology final review Discharge Plan Discharge Patient Disposition: Home Clinical Impression: COVID-19 Condition: Stable Prescriptions: No Action cephalexin 500 mg capsule 500 mg PO BID Qty: 14 0RF silver sulfadiazine [Silvadene] 1 % cream 1 applic topical BID Qty: 50 0RF Rx Instructions: apply a 1.5 mm thickness Tylenol Extra Strength 500 mg Tablet 1,000 mg PO Q4H PRN (Reason: Pain) tizanidine 4 mg tablet 4 mg PO Q6H PRN (Reason: muscle spasticity) Qty: 20 0RF Rx Instructions: do not exceed 3 doses per 24 hrs diclofenac sodium 75 mg tablet,delayed release (DR/EC) 75 mg PO Q12H PRN (Reason: pain) Qty: 20 0RF Discharge Orders: Discharge ED (Routine); Ordered 04/16/25 Ordered By: Mary Ann Madsen Referrals: Fareed Meehan MD [Primary Care Provider, Family Practice] Discharge Diet: Usual diet Discharge Activity: Increase activity as tolerated Patient Instructions: COVID-19 (Coronavirus Disease 2019) (ED), Opioid Safety, Pain Management, Patient Portal & Nicki Instructions Activity Restrictions/Additional Instructions: Thank you for choosing [facility] for your healthcare needs today. You have been screened and evaluated and felt safe for discharge. Health conditions do change or evolve sometimes and as such it is important that you follow up with your Primary Doctor to be re checked, 3-5 days is a general good time frame for follow up. You are always welcome to return to the ED for re assessment if your symptoms are worsening or you have new concerns Print Language: Mongolian Coding Level of Care Code ED Door Frame Builder for Chg Fwd Heart Score HEART Score Components History: Slightly Suspicous EKG: Normal Age: 45-64 yrs Risk Factors: No Risk Factors Known Troponin: Baseline Trop <16 ng/L HEART Score RESULT HEART Score: 1
[2025-04-16 06:12] VITALS: BP 132/95; PULSE 107; RESP 30; O2SAT 99; BMI 38.2
[2025-04-16 06:22] VITALS: TEMP 37.2
[2025-04-16 06:29] LABS: Glucose Urine UA Negative (Normal); Nitrate Urine Negative (Negative); Specific Gravity, Urine 1.023 (1.005-1.030)
[2025-04-16 06:35] LABS: Hematocrit 43.8 % (37-53); Hemoglobin 15.80 g/dL (11.27-16.99); Mean Corpuscular HGB Conc 36.1 g/dL (30-55); Mean Corpuscular Hemoglobin 28.5 pg (27-33); Mean Corpuscular Volume 78.9 fl (82-101); Nucleated Red Blood Cells % 0 %; Platelet Count 270 10^3/cmm (157-399); Red Blood Count 5.55 10^6/uL (3.85-5.65); White Blood Count 8.99 10^3/uL (3.29-11.43)
[2025-04-16 06:45] VITALS: BP 123/79; PULSE 94; RESP 18; O2SAT 96
[2025-04-16 06:48] LABS: Troponin(5th) Baseline 7 ng/L (0-15)
[2025-04-16 06:50] LABS: Lactic Sepsis W/Reflex 2.7 mmol/L (0.5-2.2)
[2025-04-16 06:53] LABS: Reflex Lactate Order REFLEX LACTIC ORDERD
[2025-04-16 06:58] LABS: Alanine Aminotransferase 30 U/L (0-41); Albumin Level 4.8 g/dL (3.5-5.2); Alkaline Phosphatase 65 U/L (40-130); Anion Gap 21.9 (5-19); Aspartate Amino Transferase 19 U/L (0-40); Blood Urea Nitrogen 10 mg/dL (6-20); Calcium 9.3 mg/dL (8.5-10.5); Carbon Dioxide 19 mmol/L (22-29); Chloride 98 mmol/L (98-107); Creatinine Clr Calc Pharmacy 114.0626; Globulin 2.0 g/dL (1.3-4.6); Glucose 133 mg/dL (65-115); NT Pro B Type Natriuretic Pept < 36 pg/mL (0-125); Osmolality Calculated 281 mOsm/kg (285-295); Potassium 3.9 mmol/L (3.5-5.1); Sodium 135 mmol/L (136-145); Total Protein 6.8 g/dL (6.6-8.7)
[2025-04-16 07:10] LABS: Respiratory Syncytial Virus Ce NEGATIVE (Negative)
[2025-04-16 07:34] LABS: SARS-CoV-2 PCR Positive (Negative)
[2025-04-16 07:36] VITALS: BP 98/74; PULSE 87; RESP 16; O2SAT 95
== END 2025-04-16 07:47 | disposition home or self-care (01) ==
PROVIDERS: Emergency Provider Emergency Medicine; PCP Family Medicine
DX: U07.1 COVID-19 (principal); Z11.52 Encounter for screening for COVID-19; F17.290 Nicotine dependence, other tobacco product, uncomplicated
CPT/HCPCS: 36415; 71045; 80053; 81001; 83605; 83880; 84484; 85025; 85378; 87637; 93005; 99285